=== PATIENT | male | born 1970 | race Caucasian/White ===

== ENCOUNTER → 2016-12-10 | Outpatient (CLI) | payer MEDICAID ==
[~2016-12-10] MED LIST: AUGMENTIN 875-1 EACH PO; LAC PO; METFORMIN HCL1000 MG PO; TOP50 PO; TOPROL XL100 MG PO; ZES20 PO
== END | disposition home or self-care (01) ==
LOC: RD 16:38
PROC: BW241ZZ Computerized Tomography (CT Scan) of Chest and Abdomen using Low Osmolar Contrast (ICD-10-PCS; principal; 2016-12-10)
DX: S20.211A Contusion of right front wall of thorax, initial encounter (principal); X58.XXXA Exposure to other specified factors, initial encounter; Y92.9 Unspecified place or not applicable
CPT/HCPCS: Q9967